=== PATIENT | female | born 1930 | race Caucasian/White ===

== ENCOUNTER → 2017-09-19 | Outpatient (CLI) | payer OTHER ==
[~2017-09-19] MED LIST: AMARYL2 MG PO; AMLODIPINE BESY10 MG PO; BACTROBAN CREAM30 G1 TOP; CALCIUM 500 +1 EACH PO; CLOBETASOL EMOL15 GM TP; COREG3.125 MG PO; COZAAR 50 MG TA50 M2 PO; CRESTOR10 MG PO; DOXEPIN 10 MG C10 MG PO; ELIQUIS2.5 MG PO; FENTANYL TD; FLUOCINONI0.05 %/30 TOP; HYDROXYZINE HCL25 M1 PO; LASIX 20 MG TAB20 MG PO; NORCO 5-325 TA1 EACH PO; NOVOLOG100 UNIT/1 SUBQ; SORINE 80 MG TA80 M1 PO; VITAMIN D1000 UNI1 PO; VITAMINC500 PO
== END ==
LOC: CAT 00:12
DX: M41.85 Other forms of scoliosis, thoracolumbar region (principal); R63.4 Abnormal weight loss

== ENCOUNTER 2017-11-14 17:24 | Emergency (ER) | payer OTHER ==
[~2017-11-14] VITALS: Ht 157.5 cm; Wt 56.7 kg
[2017-11-14 20:52] VITALS: BP 145/97
== END 2017-11-14 20:52 | disposition home or self-care (01) ==
LOC: ER 17:24
DX: S62.627A Displaced fracture of middle phalanx of left little finger, initial encounter for closed fracture (principal); S63.615A Unspecified sprain of left ring finger, initial encounter; I10 Essential (primary) hypertension; I48.91 Unspecified atrial fibrillation; E11.9 Type 2 diabetes mellitus without complications; E78.00 Pure hypercholesterolemia, unspecified; Z96.641 Presence of right artificial hip joint; Z88.1 Allergy status to other antibiotic agents; Z88.8 Allergy status to other drugs, medicaments and biological substances; W18.30XA Fall on same level, unspecified, initial encounter; Y93.89 Activity, other specified; Y92.89 Other specified places as the place of occurrence of the external cause; Y99.8 Other external cause status

== ENCOUNTER 2019-06-17 10:32 | Inpatient (IN) | payer OTHER ==
[~2019-06-17] VITALS: Ht 160 cm; Wt 56.7 kg
[2019-06-17 10:36] VITALS: BP 130/73
[2019-06-17] MEDS ORDERED: TYLENOL EXTRA500 MG PO (12:19)
[2019-06-17] MEDS ORDERED: FLEXERIL PO (12:20)
[2019-06-17] MEDS ORDERED: TRAMADOL 50 MG50 MG PO (12:20)
[2019-06-17] MEDS ORDERED: MEDROL2 MG PO (12:21)
[2019-06-17] MEDS ORDERED: COZAAR 25 MG TA25 M2 PO (12:22)
[2019-06-17 13:53] LABS: URINE BILIRUBIN NEGATIVE (Negative); URINE BLOOD NEGATIVE (Negative); URINE CLARITY CLEAR; URINE COLOR YELLOW; URINE GLUCOSE-RANDOM* NEGATIVE (Negative); URINE KETONES NEGATIVE (Negative); URINE LEUKOCYTES NEGATIVE (Negative); URINE NITRITE NEGATIVE (Negative); URINE PROTEIN (DIPSTICK) TRACE (Negative)
[2019-06-17 14:04] LABS: MCH 31.2 pg (26.0-34.0); MCHC 32.4 g/dL (28.0-37.0); PLATELET COUNT 282 thou/uL (150-400); RBC 4.16 mil/uL (4.20-5.00); WBC 11.3 thou/uL (4.0-11.0)
[2019-06-17 14:05] LABS: CALCIUM 9.2 mg/dL (8.5-10.1); CREATININE 1.2 mg/dL (0.6-1.0); POTASSIUM 4.3 mmol/L (3.5-5.1)
[2019-06-17 14:32] LABS: ABSOLUTE NEUTROPHILS 8.4 thou/uL (1.4-8.2); ANISOCYTOSIS 1+
[2019-06-17 15:05] VITALS: BP 122/73
[2019-06-17 15:31] VITALS: BP 113/69
[2019-06-17 16:55] VITALS: BP 125/74
--- NOTE | 2019-06-17 19:24 | NUR ---
ASSUMED CARE OF PATIENT APPROX 1600, PT A&OX4, VSS, PAIN IN BACK AT 6. PT UP TO BEDSIDE COMMODE WITH 1 ASSIST. PT HAD DINNER AND TOLERATED. IV PATENT IN RIGHT AC, FLUIDS RUNNING. NO SIGNS OF DISTRESS, WILL CONTINUE TO MONITOR.
[2019-06-17 19:52] VITALS: BP 125/70
[2019-06-18 03:31] VITALS: BP 164/85
--- NOTE | 2019-06-18 04:18 | NUR ---
ASSUMED CARE AROUND 1900. AXOX3. [place]. BLADDER SCANNED PER MD ORDER. ST ASSIT TO [facility] AND VOIDED WITHOUT ANY INTERVENTIONS. INSULIN ORDER CHANGED TO [facility] PER ELEMENTARY EDUCATOR TRANSPLANTER FOR . NEW IV ON SHARON. TOLERATED WELL. NO S/S ACUTE DISTRESS NOTED OR REPORTED AT THIS TIME. WILL CONT TO MONITOR FOR ANY CHANGES IN CONDITION.
[2019-06-18 05:54] LABS: ABSOLUTE NEUTROPHILS 9.4 thou/uL (1.4-8.2); BASOPHILS 0.3 % (0.0-2.0); HEMATOCRIT 37.4 % (37.0-47.0); HEMOGLOBIN 12.4 gm/dL (12.0-15.0); MCH 31.5 pg (26.0-34.0); MCHC 33.2 g/dL (28.0-37.0); MCV 94.8 fL (80.0-100.0); PLATELET COUNT 262 thou/uL (150-400); POLYS 90.7 % (36.0-66.0); RBC 3.95 mil/uL (4.20-5.00); RDW 13.4 % (10.5-14.5); WBC 10.4 thou/uL (4.0-11.0)
[2019-06-18 06:09] LABS: CREATININE 1.2 mg/dL (0.6-1.0); MAGNESIUM 2.1 mg/dL (1.8-2.4); POTASSIUM 4.2 mmol/L (3.5-5.1)
[2019-06-18 06:11] LABS: GLYCOHEMOGLOBIN (HGB A1C) 6.6 % (4.8-5.6)
[2019-06-18 07:42] VITALS: BP 136/74
--- NOTE | 2019-06-18 14:21 | NUR ---
PATIENT SEEN BY DR. JIMÉNEZ THIS DATE. PATIENT WILL NEED TO WORK WITH OT/PT TO ASSESS LEVEL OF FUNCTION AND NEED. WILL CONTINUE TO FOLLOW. THANK YOU FOR THIS REFERRAL.
[2019-06-18 14:39] VITALS: BP 141/61
--- NOTE | 2019-06-18 14:40 | NUR ---
INITIAL ASSESSMENT: Received consult. LUCIO reviewed chart and spoke with nursing and attending physician. Pt was admitted from home due to low back pain. Pt with hx of compression fx. Pt had MRI earlier today, which showed sacral fracture. Therapies ordered and [facility] consulted to evaluate pt. LUCIO met with pt at bedside. Introduced role of SW. Pt is alert/orientated x 4. Pt reports she lives at home alone. 1 step to enter. No steps inside. Prior to admission, pt was using a cane and rollator walker for ambulation. Pt also has roller walker. [facility] and she would like to use them again when discharged. Pt's PCP is Dr. Cruz. Pt's spouse earlier this year. Pt's niece assists with shopping and is able to assist pt as needed. LUCIO discussed possibility of going to . Pt agreeable. LUCIO discussed with prevocational/rehabilitation counselor. Will see how pt does with therapy and will need insurance authorization. LUCIO is following to assist as needed with discharge planning.
[2019-06-18 20:37] VITALS: BP 143/84
--- NOTE | 2019-06-18 21:12 | NUR ---
PT A&OX4, VSS, PAIN IN BACK. PAIN MANAGED WITH MEDICATION AND RELAXATION. PT HAD MRI COMPLETED TODAY. PT TOLERATING DIET, UP TO BEDSIDE COMMODE, FALL PRECAUTIONS IN PLACE. FLUIDS RUNNING ORDERED, NO SIGNS DISTRESS. WILL CONTINUE TO MONITOR.
--- NOTE | 2019-06-19 02:55 | NUR ---
assumed care of pt @1900. pt a&ox4. pain is at 4/10. pt declined pain med. diclofenac gell was administered on pt lower back. lidocaine patch was added to pt pain regimen but pt declined the 2300 dose but will appreciate it in the morning, she said. pt uses the bsc for elimination and has been voiding appropraitly. pt is rest and there's no s/s of distress. fall prec in place. call la within reach. will cont to monitor
[2019-06-19 06:04] LABS: ABSOLUTE NEUTROPHILS 8.9 thou/uL (1.4-8.2); BASOPHILS 0.1 % (0.0-2.0); EOSINOPHILS 0.6 % (0.0-3.0); HEMATOCRIT 36.5 % (37.0-47.0); LYMPHOCYTES 13.3 % (24.0-44.0); MCH 31.3 pg (26.0-34.0); MCHC 32.8 g/dL (28.0-37.0); MCV 95.4 fL (80.0-100.0); MONOCYTES 5.9 % (1.0-8.0); PLATELET COUNT 278 thou/uL (150-400); POLYS 80.1 % (36.0-66.0); RBC 3.82 mil/uL (4.20-5.00); RDW 13.5 % (10.5-14.5); WBC 11.2 thou/uL (4.0-11.0)
[2019-06-19 06:23] LABS: ALBUMIN 2.6 g/dL (3.4-5.0); CALCIUM 8.6 mg/dL (8.5-10.1); MAGNESIUM 1.9 mg/dL (1.8-2.4); PHOSPHORUS 2.8 mg/dL (2.5-4.9); POTASSIUM 4.2 mmol/L (3.5-5.1); TOTAL BILIRUBIN 0.4 mg/dL (<0.1-1.0); TOTAL PROTEIN 6.1 g/dL (6.4-8.2)
[2019-06-19 07:30] VITALS: BP 167/83
[2019-06-19 15:11] VITALS: BP 152/98
--- NOTE | 2019-06-19 16:04 | NUR ---
WIRE WINDING MACHINE OPERATOR SPOKE WITH DR. SHEPPARD REGARDING PATIENT'S FUNCTIONAL LEVEL IN PHYSICAL THEREAPY BEING SO HIGH THAT PATIENT WOULD NOT BE A GOOD CANDIDATE FOR ACUTE REHAB AND AUTHORIZATION FROM INSURANCE WOULD BE EXTREMELY UNLIKELY. DR. SHEPPARD STATED SHE HAD ALREADY HEARD THIS NEWS FROM DR. JIMÉNEZ AND WAS IN AGREEMENT. VELVET CUTTER INFORMED TO ATTEMPT SNF PLACEMENT.
--- NOTE | 2019-06-19 16:54 | NUR ---
on-going assessment: CM REVIEWED CHART. [facility] IS NOT ABLE TO ACCEPT PATIENT. CM PROVIDED PATIENT SNF LIST. PT REPORTS SHE HAS BEEN TO [facility] IN THE PAST AND WANTED A REFERRAL THERE. PT STATES SHE ALSO HAS HEARD GOOD THINGS ABOUT [facility] AND WANTED A REFERRAL SENT THERE WELL. PT REPORTS HER NIECE WILL BE HERE TOMORROW TO FURTHER DISCUSS WHICH ONE THEY PREFER.
[2019-06-19 19:45] VITALS: BP 188/116
[2019-06-19 19:55] VITALS: BP 169/91
--- NOTE | 2019-06-19 21:27 | NUR ---
PATIENT UP TO BEDSIDE COMMODE USING WALKER AND GAIT BELT. REQUIRES EXTRA TIME WITH STANDBY ASSIST. REPORTS MINIMAL TO NO PAIN AT REST. REPORTS PAIN INCREASED WITH MOVEMENT. REFUSING PAIN MEDICATIONS. REPORTS RELIEF WITH LIDOCAINE PATCH ORDERED. PATIENT UP TO THE BEDSIDE COMMODE TO VOID 5 TIMES THIS SHIFT. FALL PRECAUTIONS IN PLACE.
--- NOTE | 2019-06-20 03:01 | NUR ---
ASSUMED CARE OF PT @1900. PT A&OX4. PT HAS BEEN GETTING UP TO THE BATHROOM FOR ELIMINATION WITH A WALKER AND STEADY GAIT. PAIN HAS BEEN 2-3/10 MOST OF THE NIGHT. FALL PREC IN PLACE. CALL LIGHT WITHIN REACH. NO S/S OF DISTRESS. WILL CONT TO MONITOR
[2019-06-20 03:45] VITALS: BP 154/102
[2019-06-20 07:30] VITALS: BP 183/104
--- NOTE | 2019-06-20 12:04 | NUR ---
LUCIO reviewed chart and spoke with nursing and attending physician. Pt is progressing towards goals for discharge to post-acute. LUCIO notified that [facility] can both accept pt. LUCIO met with pt at bedside to provide update. Pt states her preference is [facility]. [facility] will be her back up plan. [facility] is submitting for insurance authorization today. Chart copy requested. LUCIO is following to assist as needed with discharge planning.
--- NOTE | 2019-06-20 12:26 | NUR ---
DISCHARGE PLANNING. POST ACUTE RECOMMENDED AT DISCHARGE. REFERRAL [facility]XED TO [facility] PER [facility]IENT REQUEST. CALL RECEIVED FROM [facility], [facility] ADMISSIONS. ACCEPTING OF PATIENT. CURRENTLY ONLY [facility] ROOM AVAILABLE. PATIENT AWARE. MRI RESULTS FAXED TO [facility] PER REQUEST. [facility] TO BEGIN INSURANCE AUTH PROCESS AND WILL CONTACT ONCE OBTAINED. UNIT SW AWARE. FOLLOWING.
[2019-06-20] MEDS ORDERED: CARVEDILOL25 MG PO (13:33)
[2019-06-20] MEDS ORDERED: CALCIUM 500 +1 EAC5 PO (13:34)
[2019-06-20] MEDS ORDERED: HYDROCODON-ACE1 EAC7 PO (13:34)
[2019-06-20] MEDS ORDERED: PROTONIX 20 MG20 M1 PO (13:35)
[2019-06-20] MEDS ORDERED: MEDROLDOSEPACK PO (13:37)
[2019-06-20] MEDS ORDERED: VITAMIN D2000 UNIT PO (13:38)
[2019-06-20] MEDS ORDERED: LIDOCAINE PAIN1 EACH TOP (13:56)
[2019-06-20 14:06] VITALS: BP 156/84
--- NOTE | 2019-06-20 15:08 | NUR ---
PT A&OX4, VSS, DENIES PAIN AT THIS TIME. PATIENT STATES HER PAIN IS EXACERBATED WITH MOVEMENT. SHE IS RESTING IN BED. NO SKIN ISSUES. NO SIGNS OF DISTRESS, WILL CONTINUE TO MONITOR.
--- NOTE | 2019-07-04 10:59 | HC ---
[facility] [place] [address] CONSULTATION Name: ELBERT MELISSA Room #: 458-P [facility] IN ..#: [id number] Admission: 06/17/19 Attend Phys: Adri Denson MD Discharge: 06/20/19 Date of : 30 Report #: [id number] THIS REPORT FOR: //name// CC: Adri Cruz DATE OF SERVICE: 06/18/2019 HISTORY OF PRESENT ILLNESS: The patient is an 89-year-old white female who was admitted after lifting a suitcase 2-3 weeks ago with worsening pain involving her back and bilateral lower extremities, buttocks and legs. The pain has worsened to the point where she has been unable to ambulate. She has intractable low back pain. CT of the lumbar spine showed previous moderate L1 compression fracture with prior vertebroplasty, but no new compression fracture. She has an MRI of the lumbar spine, which is currently pending. We are seeing her in rehabilitation medicine consultation. She notes that the pain is in the generalized lumbosacral area with pain going down both posterior buttock and legs. Denies any bowel or bladder changes. Denies focal sensory decrease. PAST MEDICAL HISTORY: Includes a prior L1 kyphoplasty. She does have a history of hypertension, chronic kidney disease, diabetes mellitus, chronic atrial fibrillation, on anticoagulation. MEDICATIONS: Please see the full medication listing. ALLERGIES: NOTED IRINEO INHIBITORS, AZITHROMYCIN, FELODIPINE, STATINS. SOCIAL HISTORY: Lives alone, house, no steps, ever using a cane up until recently when she started using a walker. She does have a niece, Cruzito that visits once a week and helps out, has other nieces and nephews that could be assisting her. REVIEW OF SYSTEMS: No current complaints of chest pain, shortness of breath or abdominal discomfort. PHYSICAL EXAMINATION: GENERAL: An 89-year-old white female in no obvious distress. VITAL SIGNS: Last recorded temperature 97.5, pulse 96, respirations 16, blood pressure 136/74. The patient is alert. HEAD, EYES, EARS, NOSE, AND THROAT: Appeared to be benign. NEUROLOGIC: Cranial nerves grossly intact. Facies are symmetric. EXTREMITIES: Functional range of motion of the upper extremities without obvious focal weakness. Lower extremities: She does have some discomfort with gentle lower extremity movement. I would grade her strength at probably a grade 4-/5 to 3+/5. DTRs are 1. No obvious focal sensory decrease. No note of any clonus. [facility] [address] [place] [address] CONSULTATION Name: ELBERT MELISSA Room #: 458-P [facility]#: [id number] Admission: 06/17/19 Attend Phys: Adri Denson MD Discharge: 06/20/19 Date of : 30 Report #: [id number] ASSESSMENT: An 89-year-old white female with the following problems: 1. Intractable low back pain with bilateral lower extremity radiculopathy. 2. Acute on chronic renal insufficiency. 3. Diabetes mellitus. 4. Hypertension. 5. Atrial fibrillation, on anticoagulation. 6. Prior history of an L1 compression fracture. PLAN: She has just had the MRI scan. Note that there is consideration for Neurosurgery or Orthopedics involvement. Once MRI is done. Agree with physical therapy as is ordered. We will add occupational therapy. At this point, we will be glad to follow along with you regarding her rehab therapy needs. <ELECTRONICALLY SIGNED> By: Surya Terrazas MD 07/04/19 1059 1022 1316 Surya Terrazas MD /[facility]
== END 2019-06-20 17:00 | DRG 542 ==
LOC: ER 10:32 → 4W 13:57 → EROBS 13:57 → 4W 15:31
PROVIDERS: Emergency Medicine; Nurse Practitioner; Nurse Practitioner Family; ADMIT Internal Medicine
DX: M80.08XA Age-related osteoporosis with current pathological fracture, vertebra(e), initial encounter for fracture (principal); E43 Unspecified severe protein-calorie malnutrition; N17.9 Acute kidney failure, unspecified; I48.2 Chronic atrial fibrillation; I12.9 Hypertensive chronic kidney disease with stage 1 through stage 4 chronic kidney disease, or unspecified chronic kidney disease; E11.22 Type 2 diabetes mellitus with diabetic chronic kidney disease; N18.3 Chronic kidney disease, stage 3 (moderate); E78.5 Hyperlipidemia, unspecified; M54.18 Radiculopathy, sacral and sacrococcygeal region; E53.8 Deficiency of other specified B group vitamins; Z96.641 Presence of right artificial hip joint; E11.9 Type 2 diabetes mellitus without complications; E78.00 Pure hypercholesterolemia, unspecified; Z88.1 Allergy status to other antibiotic agents; Z88.8 Allergy status to other drugs, medicaments and biological substances; Z79.01 Long term (current) use of anticoagulants; Z86.73 Personal history of transient ischemic attack (TIA), and cerebral infarction without residual deficits
CPT/HCPCS: 10040

== ENCOUNTER → 2019-08-08 | Outpatient (CLI) | payer OTHER ==
[~2019-08-08] MED LIST changes: +CALCIUM 500 +1 EAC5 PO; +CARVEDILOL25 MG PO; +COZAAR 25 MG TA25 M2 PO; +FLEXERIL PO; +HYDROCODON-ACE1 EAC7 PO; +LIDOCAINE PAIN1 EACH TOP; +MEDROL2 MG PO; +MEDROLDOSEPACK PO; +PROTONIX 20 MG20 M1 PO; +TRAMADOL 50 MG50 MG PO; +TYLENOL EXTRA500 MG PO; +VITAMIN D2000 UNIT PO
== END ==
LOC: NUC 10:04
DX: M80.00XA Age-related osteoporosis with current pathological fracture, unspecified site, initial encounter for fracture (principal)

== ENCOUNTER 2020-01-08 18:18 | Inpatient (IN) | payer OTHER ==
[~2020-01-08] VITALS: Ht 157.5 cm; Wt 72.3 kg
[2020-01-08 18:34] VITALS: BP 199/112
[2020-01-08 18:53] LABS: ABSOLUTE NEUTROPHILS 4.8 thou/uL (1.4-8.2); BASOPHILS 0.5 % (0.0-2.0); EOSINOPHILS 1.7 % (0.0-3.0); HEMATOCRIT 45.1 % (37.0-47.0); HEMOGLOBIN 15.1 gm/dL (12.0-15.0); MCH 31.3 pg (26.0-34.0); MCHC 33.4 g/dL (28.0-37.0); MCV 93.7 fL (80.0-100.0); MONOCYTES 8.4 % (1.0-8.0); PLATELET COUNT 251 thou/uL (150-400); POLYS 67.4 % (36.0-66.0); RBC 4.81 mil/uL (4.20-5.00); RDW 13.3 % (10.5-14.5); WBC 7.1 thou/uL (4.0-11.0)
[2020-01-08 19:03] LABS: APTT 29.2 Seconds (24.5-32.8); PROTIME 10.5 Seconds (9.3-11.4)
[2020-01-08 19:06] LABS: CALCIUM 8.7 mg/dL (8.5-10.1); CREATININE 1.1 mg/dL (0.6-1.0); POTASSIUM 4.1 mmol/L (3.5-5.1)
[2020-01-08 19:12] LABS: ALBUMIN 3.6 g/dL (3.4-5.0); TOTAL BILIRUBIN 0.7 mg/dL (<0.1-1.0); TOTAL PROTEIN 7.2 g/dL (6.4-8.2)
[2020-01-08 20:08] LABS: URINE BILIRUBIN NEGATIVE (Negative); URINE BLOOD TRACE (Negative); URINE CLARITY CLEAR; URINE GLUCOSE-RANDOM* NEGATIVE (Negative); URINE KETONES NEGATIVE (Negative); URINE LEUKOCYTES-REFLEX NEGATIVE (Negative); URINE NITRITE-REFLEX NEGATIVE (Negative); URINE PROTEIN (DIPSTICK) NEGATIVE (Negative); URINE SPECIFIC GRAVITY 1.015 (1.005-1.035); URINE UROBILINOGEN 0.2 E.U./dl (0.2-1.0)
[2020-01-08 20:09] LABS: URINE COLOR PALE YELLOW
[2020-01-08 20:19] LABS: AMP/METHAMP Negative (Negative); BARBITURATES Negative (Negative); BENZODIAZEPINES Negative (Negative); COCAINE Negative (Negative); METHADONE Negative (Negative); OPIATES Negative (Negative); PCP Negative (Negative)
[2020-01-08 20:39] VITALS: BP 173/97
[2020-01-08] MEDS ORDERED: GLIPIZIDE5 MG PO (20:44)
[2020-01-08] MEDS ORDERED: CARVEDILOL12.5 MG PO (20:44)
[2020-01-08] MEDS ORDERED: NORVASC5 MG PO (20:45)
[2020-01-08] MEDS ORDERED: OMEPRAZOLE 20 M20 M1 PO (20:45)
[2020-01-08 21:08] VITALS: BP 180/102
[2020-01-08 21:55] VITALS: BP 140/70
--- NOTE | 2020-01-08 23:20 | NUR ---
PATIENT IS A NEW PATIENT TO THE UNIT THIS SHIFT. SHE ARRIVED VIA BED FROM THE ER ALREADY PLACED IN TRACTION. PATIENT IS ALERT AND ORIENTED AND ABLE TO PARTICIPATE IN ADMISSION AND CALL FOR NEEDS. NURSE TO COMPLETE MOST OF THE ADMISSION BEFORE HANDING OVER CARE TO STAFF NURSE.
--- NOTE | 2020-01-09 06:43 | NUR ---
RECIEVED CARE OF THIS PATIENT AROUND 2300. PATIENT ALERT AND ORIENTED X4. PATIENT HAS A LÓPEZ THAT IS PATENT. IV PATENT NS AT 75ML/HR. IS IN BUCKS TRACTION ON L LEG. PATIENT IS [place]. PEDAL PULSE TAKEN ABOUT Q2 HOURS. THE 4 AND 6 OCLOCK PULSES HEARD WITH DOPPLER. REMAINS SUPINE. DENIES PAIN. SLEPT MOST OF NIGHT.
[2020-01-09 07:47] VITALS: BP 132/79
[2020-01-09 08:08] LABS: HEMATOCRIT 36.3 % (37.0-47.0)
[2020-01-09 08:15] LABS: CALCIUM 7.8 mg/dL (8.5-10.1)
--- NOTE | 2020-01-09 13:27 | EKG ---
[facility] [place] [address] ELECTROCARDIOGRAM REPORT Name: ELBERT MELISSA Room #: 446-P ADM IN M.R.#: [id number] Admission: 01/08/20 Attend Phys: Mohan Ramirez Discharge: Date of : 30 Report #: [id number] THIS REPORT FOR: cc: Raffaele Cruz,Alex Adame MD [facility] ~ THIS REPORT FOR: //name// [facility] ED Test Date: 2020-01-08 Test Time: 20:37:12 Pat Name: ELBERT MELISSA Department: Room: 446 Gender: F Film Process Operator: : 1930 Requested By: Chase Pelaez Order Number: [id number] MD: Alex Hall Measurements Intervals [place] Rate: 113 P: VA: QRS: 82 QRSD: 87 T: 9 QT: 415 QTc: 570 Interpretive Statements Atrial fibrillation Borderline right axis deviation Abnormal R-wave progression, late transition Nonspecific ST and T wave abnormality Compared to ECG 09/29/2014 11:15:26 Sinus rhythm no longer present Electronically Signed On 01-09-2020 13:26:22 CDT by Alex Hall [email or web address] <ELECTRONICALLY SIGNED> By: Alex Hall MD, [facility] 01/09/20 1326 36 36 Alex Hall MD, FAC /EPI
--- NOTE | 2020-01-09 14:08 | NUR ---
PT ADMITTED RELATED TO LT HIP/FEMORAL FRACTURE. CM REVIEWED CHART AND SPOKE WITH CARE TEAM. CM CALLED AND SPOKE WITH PT IN HER ROOM THIS DAY. PT APPEARES TO BE ALERT AND ORIENTED. PT INDICATED SHE HAD BEEN LIVING IN A HOUSE ALONE WITH 1 STEP TO ENTER AND A CHAIR LIFT TO BASEMENT. PT INDICATED SHE HAS A 4WW AND A WC TO ASSIST WITH MOBILITY. PT INDICATED SHE COULDN'T RECALL HAVING HH OR BEING AT A SKILLED REHAB FACILIY. CHART INDICATES THAT PT HAD [facility] IN THE PAST AND [facility]. CM CALLED AND SPOKE WITH PT'S MARY BANUELOS AND SHE INDICATED THAT SHE WAS RECEPTIVE TO PT GOING FOR POST ACUTE CARE STAY UPON DC. SHE STATED THAT [facility] COULD ASSESS OTHERWISE THEY WERE INTERESTED IN [facility] OR [facility]. CARE TEAM ANTICIAPTE SURGERY TOMORROW. CM TO FOLLOW INDICATED WITH DC PLANNING.
--- NOTE | 2020-01-09 14:56 | HC ---
[facility] [place] [address] CONSULTATION Name: ELBERT MELISSA Ramón Room #: 446-P ADM IN M.R.#: [id number] Admission: 01/08/20 Attend Phys: Mohan Ramirez Discharge: Date of : 30 Report #: [id number] THIS REPORT FOR: cc: Raffaele Cruz,Surya Kelly MD ~ CC: Mohan Cruz DATE OF SERVICE: 01/09/2020 CHIEF COMPLAINT: Left femur fracture. HISTORY OF PRESENT ILLNESS: This 89-year-old female remains alert and independent. She lives at home in her own house by herself and ambulates independently using a walker for balance. She has had a previous right hip fracture, treated with surgical repair and total hip replacement about 7 years ago. She also has a history of atrial fibrillation and is on chronic anticoagulation and also has type 2 diabetes and hypertension, which appeared to be well managed. She fell while sitting on her bed and injured the left hip. X-rays now confirmed a subtrochanteric fracture of the left proximal femur with displacement. She has no other apparent injuries. At the time of my evaluation, she is alert and oriented and seems reasonably comfortable in 10 pounds of traction on the left lower extremity. She states she has no other injuries. She did not strike her head. She had no loss of consciousness. She denies any other new problems with her neck, back, upper extremities or right lower extremity. PHYSICAL EXAMINATION: GENERAL: She is mildly heavy and appears to be moderately frail, but is alert and oriented and seems to have an excellent understanding of the situation. MUSCULOSKELETAL: The right lower extremity reveals an old well-healed scar consistent with a total hip replacement, which seems to be stable. The left hip is uncomfortable with any palpation or movement and findings are consistent with an unstable proximal one-third femur fracture. The knee, lower leg, foot, and ankle appear to be normal. X-rays of the pelvis reveal her old right total hip replacement, which seems stable. The left hip seems to be well aligned and stable. The right femur demonstrates a proximal one-third fracture in the subtrochanteric region, which is a short oblique noncomminuted fracture with significant angular deformity. IMPRESSION: I have discussed with the patient and also her niece the nature of this injury and treatment options. She seems to understand well and wishes to go ahead with surgical repair. I think a long intramedullary luh fixation would [address] [address] CONSULTATION Name: ELBERT MELISSA Room #: 446-P [facility] IN [facility].#: [id number] Admission: 01/08/20 Attend Phys: Mohan Ramirez Discharge: Date of : 30 Report #: [id number] be most appropriate. Pending OR availability, we may be able to proceed today or tomorrow. The patient and family understand and wish to press ahead whenever schedule will allow. <ELECTRONICALLY SIGNED> By: Surya Jones MD 01/09/20 1456 1227 1239 Surya Jones MD /nt
[2020-01-09 15:24] LABS: HEMATOCRIT 37.7 % (37.0-47.0); HEMOGLOBIN 12.6 gm/dL (12.0-15.0); MCHC 33.4 g/dL (28.0-37.0); MCV 95.9 fL (80.0-100.0); RBC 3.93 mil/uL (4.20-5.00); RDW 13.9 % (10.5-14.5); WBC 8.9 thou/uL (4.0-11.0)
[2020-01-09 16:07] VITALS: BP 119/69
[2020-01-09 17:18] VITALS: BP 133/72
--- NOTE | 2020-01-09 19:54 | NUR ---
PT A&OX4, VSS, PAIN IN LEFT LEG. PATIENT HAD SAMRA PLACED IN LEFT FEMUR TODAY. PATIENT BACK FROM SURGERY APPROX 1630. PEDIS DORSALIS PULSE HEARD WITH DOPPLER, PATIENT HAS SENSATION, COLOR APPROPRIATE, CAP REFILL WNL. SCD ON RIGHT LEG. TO ABD DRESSING ON LEFT LEG C/D/I. IV REMAINS PATENT AND IV FLUIDS RUNNING. NO SIGNS OF DISTRESS. WILL CONTINUE TO MONITOR.
[2020-01-09 22:40] VITALS: BP 95/62
[2020-01-09 23:36] VITALS: BP 89/52
[2020-01-10] VITALS (8 sets, daily range): BP systolic 96–134; BP diastolic 52–94
[2020-01-10 01:02] LABS: BE(vivo) -5.1 mmol/L (-2 to +3); HCO3 21.6 mmol/L (22.0-26.0); PCO2 46.9 mmHg (35.0-45.0); PO2 65.7 mmHg (80.0-100.0); sO2 90.4 % (92.0-98.0)
[2020-01-10 01:04] LABS: pH 7.281 (7.360-7.450)
--- NOTE | 2020-01-10 01:10 | NUR ---
UPON REPORT, PT NOTED TO AROUSE EASILY TO NAME. UPON ASSESSMENT, PT DIFFICULT TO AROUSE TO NAME OR PAINFUL STIMULI. PT RESPONDS TO PAINFUL STIMULI BY BARELY OPENING EYES AND MOANING AT TIMES. BLOOD PRESSURE NOTED TO DECREASE FROM 90s/60s TO 80s/50s WITH CONTINUED DECREASED RESPONSIVENESS. NOTIFIED VISUALIZER FLIGHT DIRECTOR, RECEIEVED ORDERS FOR 250ML NS BOLUS AND ARTERIAL ABG. NOTIFIED HIGH SCHOOL SOCIAL STUDIES TEACHER OF ASSESSMENT AND ORDERS, ENCOURAGED TO TAKE MANUAL BP AND REPOSITION PT IN [place]. MANUAL BP OF 90/62. ARTERIAL ABG PH OF 7.28 OTHERWISE NORMAL PER RT. NOTIFIED VISUALIZER FLIGHT DIRECTOR OF ARTERIAL ABG RESULTS, RECEIVED ORDERS TO CONTINUE TO INCREASE O2 SUPPLY TO 5L AND TRANSFER TO CCU TELE,RM202. NOTIFIED AUTHORIZED CONTACT LAKISHA WITH UPDATE, NO CONCERNS OR QUESTIONS. REPORT GIVEN TO 2N DANIELA RODRIGUEZ. EXPRESSED. MAGDA
--- NOTE | 2020-01-10 03:53 | NUR ---
PT TRANSFERRED FROM DUE TO UNRESPONSIVENESS AND CL PH ON ABGs. PT UNABLE TO BE AROUSED BY VERBAL STIMULI ON ARRIVAL. PT BARELY WITHDRAWS TO PAINFUL STIMULI. BIPAP INITIATED. RESPIRATIONS 12 AND BP 106/62 AT THIS TIME. PT HAD HER LAST PAIN MEDICATION OF NORCO 7.5/325 AT 1809. ACCORDING TO TRANSFER REPORT, RN REPORTS PT WAS AOX4 PRIOR TO THE 0 NORCO. RADIOCOMMUNICATIONS TECHNICIAN NOTIFIED. NARCAN 0.4 MG ORDER. PT WAS ABLE TO MOVE HER ARMS, RESPOND TO VERBAL STIMULI AND OPEN HER EYES WITH VERBAL STIMULATION. PT COULD STILL BARELY RESPOND VERBALLY , DRIFT BACK TO SLEEP IMMEDIATELY. VSS, BUT SOFT BP. AFIB ON THE MONITOR. WILL CONTINUE TO MONITOR.
--- NOTE | 2020-01-10 06:43 | NUR ---
PT TOTAL URINE OUTPUT FOR THE NIGHT, 200 CC. PT ON 0.45 NS AT 100 ML/HR, BLADDER SCAN 3 CC. PT HAS INDWELLING CATHETER. SOIL TESTER UPDATED.
[2020-01-10 09:30] LABS: BE(vivo) -4.8 mmol/L (-2 to +3); HCO3 20.8 mmol/L (22.0-26.0); PCO2 40.1 mmHg (35.0-45.0); PO2 79.2 mmHg (80.0-100.0); pH 7.332 (7.360-7.450)
--- NOTE | 2020-01-10 10:38 | O ---
[facility] [place] [address] OPERATIVE REPORT Name: ELBERT MELISSA Room #: 202-P [facility] IN M.R.#: [id number] Admission: 01/08/20 Attend Phys: Mohan Ramirez Discharge: Date of : 30 Report #: [id number] THIS REPORT FOR: cc: Raffaele Cruz,Surya Kelly MD ~ CC: Mohan Cruz DATE OF SERVICE: 01/09/2020 PREOPERATIVE DIAGNOSIS: Left femur fracture. POSTOPERATIVE DIAGNOSIS: Left femur fracture. PROCEDURE: Intramedullary luh fixation left femur fracture. SURGEON: Surya Jones MD INDICATIONS: This frail but still active and ambulatory 89-year-old female fell at home injuring the left femur. X-rays confirm a short spiral fracture in the subtrochanteric region. We have discussed treatment options and she has elected to go ahead with surgical repair using an intramedullary luh device. DESCRIPTION OF PROCEDURE: The patient was taken to the operating room where she was placed under general anesthesia. Prophylactic intravenous antibiotics were administered. She was positioned on the fracture table with gentle longitudinal traction and good realignment was established. The lateral aspect of the left hip, thigh and knee was meticulously prepped and draped. A skin incision was made just proximal to the greater trochanter and a guidewire passed through the greater trochanter and down the canal, crossing the fracture site and extending down to the knee. The canal was reamed to a 12.5 mm diameter reamer. A 360 mm length Synthes TFN nail using an 11 mm diameter was selected. This was impacted down the canal crossing the fracture site resulting in satisfactory alignment and stability. It was advanced to an appropriate level. A lateral guidewire was then placed into the low femoral neck. Its position was checked with C-arm and found to be satisfactory. An 85 mm helical blade fixation device was impacted up into the neck and head region. The proximal locking screw was tightened down and appeared to be stable. A distal interlocked screw was placed in the oval dynamic locking hole using a 42 mm screw with satisfactory bicortical purchase. C-arm views demonstrated satisfactory position of the fixation device and satisfactory alignment of the fracture. The wounds were then copiously irrigated. Good hemostasis was established. The deep tissues were closed with 0 Monocryl and subcutaneous tissue was closed with 2-0 Monocryl. The skin was closed with skin anshul. A sterile dressing was [address] [address] OPERATIVE REPORT Name: MANAV MELISSADAWOOD Melgar Room #: 202-P [facility] IN [facility]#: [id number] Admission: 01/08/20 Attend Phys: Mohan Ramirez Discharge: Date of : 30 Report #: [id number] applied. The patient was awakened and returned to the recovery room in satisfactory condition. <ELECTRONICALLY SIGNED> By: Surya Jones MD 01/10/20 1038 1447 1456 Surya Jones MD /nt
[2020-01-10 10:50] LABS: HEMATOCRIT 32.5 % (37.0-47.0); MCH 31.4 pg (26.0-34.0); MCHC 32.6 g/dL (28.0-37.0); MCV 96.2 fL (80.0-100.0); RBC 3.38 mil/uL (4.20-5.00); RDW 13.3 % (10.5-14.5); WBC 11.5 thou/uL (4.0-11.0)
[2020-01-10 11:02] LABS: HEMOGLOBIN 10.6 gm/dL (12.0-15.0)
--- NOTE | 2020-01-10 11:47 | NUR ---
Received pt from metal numerical tool programmer nurse, able to open eyes upon calling her name then goes back to sleep. On Bipap. On heart monitoring, no complaints of chest pain, crushing and heaviness sensation- Hx of chronic Afib. On carb controlled diet- a/w RT if ok to shift pt from Bipap to O2 via nasal cannula; no nausea, no vomiting and no abdominal pain noted. On blood sugar monitoring- taken and recorded accordingly. With aleman catheter in place- output measured and recorded accordingly. With 1/2 NS at 100cc/hr, infusing well on R FA. With surgical wound, post op Day 1 on her Left hip- dressing C/D/I; no signs of infection and bleeding noted. Ice packs and SCDs in place. Assisted in ADLs, eating and drinking. Pt's daughter Rachel called, update given. Pt seen by Dr Ramirez this AM, talked to RT, may shift pt to O2 at 3lpm via nasal cannula, ABG ordered and done, may resume diet once tolerating O2 via nasal cannula; to discontinue IVF- done as ordered. Saturating at 100% at O2 via nasal cannula, tolerated swallow of tablets. Seen by OT/PT, able to tolerate session and sit out on chair. As per CM- a/w evaluation for possible discharge to [facility]. To continue monitoring patient.
--- NOTE | 2020-01-10 14:26 | NUR ---
FAXED RE[facility]ERRAL TO [facility] SPOKE WITH TITUS IN ADM SHE RECEIVED REFERRAL AND WILL REVIEW IF ACCEPTED WILL SUBMIT FOR AUTH FOR [facility] DC TOMORROW 01/10. FAXED REFERRAL TO [facility] RECEIVED COMFIRMATION AND LEFT MSG WITH RAYMOND IN ADM. DP TO FOLLOW.
--- NOTE | 2020-01-10 16:08 | NUR ---
SPOKE WITH TITUS IN ADM FROM [facility] THEY CAN ACCEPT AND HAVE AUTH FOR PT TO [facility] OVER WEEKEND. THEY WILL NOTIFY PT'S FAMILY REGARDING THE NO VISIT POLICY. IF PT DISCHARGES PLEASE FAX DC ORDERS/[facility] FAX [phone] AND CALL TO SET UP TRANSPORT [phone].
--- NOTE | 2020-01-10 16:39 | NUR ---
Pt declined for [facility] acute rehab due to PWB status of 20lbs. SNF recommended and referral sent to [facility] as the pt has been there in the past. [facility] can accept and has submitted for ins approval. They have a bed Mon or Monday and can admit her this weekend if medically cleared for dc. Pt/michaela Ramos updated. Rachel aware and she has spoken with the facility admissions regarding her ins coverage and their current Covid visitation restrictions. All parties updated. Pt would need a chart copy sent with her and nursing to call the facility liason as noted by the dc conference planner to coordinate her transfer.
[2020-01-10 17:02] LABS: HEMATOCRIT 26.2 % (37.0-47.0); HEMOGLOBIN 8.9 gm/dL (12.0-15.0)
[2020-01-11 00:30] VITALS: BP 124/68
[2020-01-11 03:50] VITALS: BP 133/67
[2020-01-11 04:29] LABS: HEMATOCRIT 26.3 % (37.0-47.0); HEMOGLOBIN 8.8 gm/dL (12.0-15.0); MCH 31.9 pg (26.0-34.0); MCHC 33.5 g/dL (28.0-37.0); MCV 95.2 fL (80.0-100.0); RBC 2.77 mil/uL (4.20-5.00); RDW 13.5 % (10.5-14.5)
[2020-01-11 04:37] LABS: CREATININE 1.1 mg/dL (0.6-1.0); POTASSIUM 4.1 mmol/L (3.5-5.1)
--- NOTE | 2020-01-11 05:38 | NUR ---
Medicated for pain x1 with some relief. She has been repositioned for comfort. Bed alarm on for safety. Left hip incision with dressing clean , dry and intact. SCD's in place. O2 at 2L/NC with no respiratory distress. Ice pack to left hip to help decrease pain. Slowly making progress towards care plan goals.
[2020-01-11 07:20] VITALS: BP 114/56
--- NOTE | 2020-01-11 08:40 | NUR ---
ASSUMED CARE OF PT AT SHIFT CHANGE, SLEEPING DURING REPORT, WOKE UP TO SAY HELLO. C/O LEFT HIP, VERY [place]. WANTED TO WAIT ON BFAST; ENCOURAGED HER TO EAT A FEW BITES FOR AM MED TO AVOID ANY POSSIBLE NAUSEA. SEE SEPARATE INTERVENTIONS FOR ASSESSMENTS. ENCOURAGED HER TO USE CALL LIGHT FOR ANY NEEDS; DOES SUCCESSFUL RETURN DEMO. WILL CONTINUE TO MONITOR
--- NOTE | 2020-01-11 09:19 | NUR ---
ASSUMED CARE OF PT AT SHIFT CHANGE, ANSWERS QUESTIONS YES OR NO, NIGHT STAFF REPORTED SPEECH INCOMPREHENSIBLE, BASELINE UNK. CONTACTED PHYSICIAN TO ASK IF I SHOULD TX ELECTROLYTES DRAWN FROM YESTERDAY OR DO NEW LABS. NEW LABS DONE AND CRITICAL K+ CALLED. WILL FOLLOW PROTOCOL. PT COLD, ROOM AT 65, GOT HER WARM BLANKET AND ENCOURAGED HER TO EAT, (SET UP) WHEN SHE WAS READY. SEE SEPARATE INTERVENTIONS FOR ASSESSMENTS, REPORTS OF ON 2L DURING DAY ON BIPAP CURRENTLY. ENCOURAGED HER TO USE CALL LIGHT FOR ANY NEEDS
--- NOTE | 2020-01-11 09:22 | NUR ---
ASSUMED CARE OF PT AT SHIFT CHANGE, FOOD SET UP, FEEDS HER SELF, A&0X4 YET VERY [place]AIN[place]. LÓPEZ REMOVED PRIOR TO DAY SHIFT. ENCOURAGED HYDRATION. TURN Q2, DOES RETURN DEMO FOR CALL LIGHT USE, MOD HAND CEMENTER MACHINE. C/O PAIN IN HIP AND GENERALIZED ALL OVER. TX W/TYLENOL FOR NOW AND TRAMADOL LATER WHEN AVAILABLE. SEE SEPARATE INTERVENTIONS FOR ASSESSMENTS. WILL CONTINUE TO [facility]
[2020-01-11 11:30] VITALS: BP 105/60
[2020-01-11 15:55] VITALS: BP 132/65
[2020-01-11 19:18] VITALS: BP 181/88
--- NOTE | 2020-01-12 04:04 | NUR ---
Pt. watching TV at beginning of shift and c/o mild pain. She has been repositioned for comfort and following hip precautions. Ultram given x 1 this shift with some relief. 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 She is also very [place]. Tolerating room air well with no respiratory distress. Tele dc'd per order but she has been a fib with controlled rate prior. SCD's in place for DVT prophylaxis. Assisted to use bedpan , voided 50 ml only. Bladder scanned and reads 438 ml. REPOSSESSOR notified and order for straight cath obtained.Straight cathed x 1 and emptied 450 ml. Left hip incision with dressing CDI.Slept fair during the night. Making progress towards care plan goals.
[2020-01-12 04:20] VITALS: BP 135/65
[2020-01-12 07:30] VITALS: BP 152/77
[2020-01-12 07:47] VITALS: BP 152/77
[2020-01-12 15:03] VITALS: BP 144/83
[2020-01-12 18:11] VITALS: BP 148/85
--- NOTE | 2020-01-12 18:38 | NUR ---
VSS-101.3 TEMPERATURE ON ARRIVAL FROM . ALERT AND ORIENTED X 1-2. LUNGS DIMINISHED IN ALL MAN BILATERALLY. FALL PRECAUTIONS IN PLACE, CALLS APPROPRIATELY FOR ANY NEEDED ASSISTANCE.
--- NOTE | 2020-01-12 18:39 | NUR ---
PT CARE ASSUMED APPROXIMATELY 0700. PT ASSESSMENT CHARTED. PT MEDICATION CHARTED. PT IS EXTREMELY [place], AND BLIND IN LEFT EYE. PT IN PAIN WHEN REPOSITIONED Q2. PT POSSIBLY TO FACILITY MONDAY. VSS.
[2020-01-12 21:30] VITALS: BP 148/79
--- NOTE | 2020-01-13 04:00 | NUR ---
ALERT TO SELF AND PLACE. INCONTINENT. Q2 HR TURN. DRSG TO L HIP C/D-CHANGED X 1. SCDS IN PLACE.SWALLOWS OKAY. C/O PAIN WHILE BEING REPOSITIONED.AFEBRILE IN THE NOC.FALL PREC IN PLACE.
[2020-01-13 04:45] VITALS: BP 150/72
[2020-01-13 07:28] VITALS: BP 170/104
[2020-01-13 08:43] VITALS: BP 170/104
--- NOTE | 2020-01-13 13:02 | NUR ---
CARE TEAM INDICATED THAT PT IS MEDICALLY STABLE TO DISCHARGE SKILLED TO [facility] THIS DAY. CM NOTIFIED NIECE. SHE IS AWARE AND AGREEABLE. CHART COPY ORDERED. ORDERS FAXED. WHEELCHAIR VAN TRASNPORT IS ARRANGED FOR 1430. NO OTHER CM INTERVENTION INDICATED. CASE CLOSED.
--- NOTE | 2020-01-13 13:45 | NUR ---
Assumed care of pt at 0700. Pt alert but forgetful. Pain controlled with prn pain meds. Q2h turn. Up to chair with physical therapy. Dressing c/d/i. Pt will discharge to rehab facility. DPOA aware. Report given to Sommer SUAREZ. Pt will d/c wheelchair van. Fall precautions in place. Will continue to monitor.
== END 2020-01-13 14:54 | DRG 480 ==
LOC: ER 18:18 → EROBS 20:34 → 4S 20:34 → 2N 01-10 02:05 → 4S 01-12 17:10
PROVIDERS: Emergency Medicine; Nurse Practitioner Family; Orthopaedic Surgery; ADMIT Hospitalist
PROC: 0QH906Z Insertion of Intramedullary Internal Fixation Device into Left Femoral Shaft, Open Approach (ICD-10-PCS; principal; 2020-01-09)
PROC: 5A09357 Assistance with Respiratory Ventilation, Less than 24 Consecutive Hours, Continuous Positive Airway Pressure (ICD-10-PCS; 2020-01-10)
DX: S72.302A Unspecified fracture of shaft of left femur, initial encounter for closed fracture (principal); J96.02 Acute respiratory failure with hypercapnia; J96.01 Acute respiratory failure with hypoxia; G93.41 Metabolic encephalopathy; I48.20 Chronic atrial fibrillation, unspecified; G95.20 Unspecified cord compression; W06.XXXA Fall from bed, initial encounter; K21.9 Gastro-esophageal reflux disease without esophagitis; G47.00 Insomnia, unspecified; T40.605A Adverse effect of unspecified narcotics, initial encounter; Z96.641 Presence of right artificial hip joint; I10 Essential (primary) hypertension; E11.9 Type 2 diabetes mellitus without complications; M81.0 Age-related osteoporosis without current pathological fracture; E78.5 Hyperlipidemia, unspecified; Z79.899 Other long term (current) drug therapy; Y93.89 Activity, other specified; Y92.89 Other specified places as the place of occurrence of the external cause; Z79.01 Long term (current) use of anticoagulants; Y99.8 Other external cause status; Z88.1 Allergy status to other antibiotic agents; Z88.8 Allergy status to other drugs, medicaments and biological substances
CPT/HCPCS: 10081; 10102; 10195; 50010; 50101; 50133; 50386; 50635; 51412; 51538; 52304; 56525; 57092; 5735; 5736; 62110; 62900; 70005